=== PATIENT | male | born 1935 | race Caucasian/White ===

== ENCOUNTER 2020-07-04 11:36 | Emergency (ER) | payer MEDICARE, OTHER ==
--- NOTE | 2020-07-04 11:56 | EDM.PDOC ---
ED HPI GENERAL MEDICAL PROBLEM - General Chief Complaint: Chest Pain Time Seen by Provider: 07/04/20 11:36 Source of Information: Reports: Patient, EMS History Limitations: Reports: No Limitations - History of Present Illness INITIAL COMMENTS - FREE TEXT/NARRATIVE: Patient presents via ambulance with report of chest pain, wheezing, cough, Covid positive and requiring oxygen. On arrival he and EMS tell me that the chest pain was gone prior to time of [place] ambulance arrival to patient. He has had the cough for 3 weeks. Covid test was last week. His [id number] (who is his medical POA) called the hospital to let us know he is supposed to be at the [facility] and the family is waiting for him there. He does all of his medical care there including oncology. He has never been in [facility] before and they are requesting he be transported there as soon as possible. - Related Data Allergies Allergy/AdvReac Type Severity Reaction Status Date / Time No Known Allergies Allergy Verified 07/04/20 12:02 ED ROS GENERAL - Review of Systems Review Of Systems: See Below Constitutional: Reports: Fever Respiratory: Reports: Shortness of Breath, Wheezing, Cough Cardiovascular: Reports: Chest Pain (gone now) GI/Abdominal: Reports: Constipation. Denies: Diarrhea, Nausea, Vomiting : Reports: Other (bladder cancer) Musculoskeletal: Denies: Neck Pain, Shoulder Pain, Arm Pain Skin: Denies: Cyanosis, Jaundice, Mottled, Pallor Neurological: Denies: Confusion, Seizure, Syncope, Trouble Speaking Psychiatric: Denies: Agitation, Anxiety, Confusion ED EXAM, GENERAL - Physical Exam Exam: See Below Exam Limited By: No Limitations General Appearance: Alert, WD/WN, No Apparent Distress Eye Exam: Bilateral Eye: EOMI, Normal Inspection, PERRL Ears: Normal External Exam, Hearing Grossly Normal Nose: Normal Inspection, No Blood Throat/Mouth: Normal Inspection, Normal Voice, No Airway Compromise Head: Atraumatic, Normocephalic Neck: Normal Inspection, Full Range of Motion Respiratory/Chest: Crackles (inspiratory), Wheezing (expiratory; worse on left). No: Rhonchi, Stridor Cardiovascular: Normal Peripheral Pulses, No Murmur, Irregularly Irregular GI/Abdominal: Soft, Non-Tender Back Exam: Normal Inspection, Full Range of Motion. No: CVA Tenderness (L), CVA Tenderness (R) Extremities: Normal Inspection, Normal Range of Motion Neurological: Alert, Oriented, No Motor/Sensory Deficits Psychiatric: Normal Affect, Normal Mood Skin Exam: Warm, Dry, Intact, Normal Color, No Rash Course - Vital Signs Last Recorded V/S: Last Vital Signs Temp 100.8 F H 07/04/20 11:37 Pulse 95 07/04/20 13:00 Resp 22 H 07/04/20 13:00 BP 128/66 07/04/20 13:00 Pulse Ox 94 L 07/04/20 13:00 - Orders/Labs/Meds Orders: Active Orders 24 hr Category Date Time Status EKG Documentation Completion [RC] ASDIRECTED Care 07/04/20 12:10 Active Chest 2V [CR] Stat Exams 07/04/20 13:07 Ordered CULTURE BLOOD [BC] Stat Lab 07/04/20 12:37 Ordered CULTURE BLOOD [BC] Stat Lab 07/04/20 12:37 Ordered Blood Culture x2 Reflex Set [OM.PC] Stat Oth 07/04/20 12:36 Ordered EKG 12 Lead [EK] Stat Ther 07/04/20 12:10 Ordered Labs: Laboratory Tests 07/04/20 07/04/20 Range/Units 11:45 11:45 WBC 4.75 L (5.00-10.00) 10^3/uL RBC 3.16 L (4.50-6.00) 10^6/uL Hgb 9.9 L (13.0-17.0) g/dL Hct 27.7 L (40.0-52.0) % MCV 87.7 (82.0-92.0) fL MCH 31.3 H (27.0-31.0) pg MCHC 35.7 (32.0-36.0) g/dL RDW 14.4 (11.5-14.5) % Plt Count 62 L (150-400) 10^3/uL MPV 11.7 H (7.4-10.4) fL Immature Gran % (Auto) 0.2 (0.0-5.0) % Neut % (Auto) 79.0 H (50.0-70.0) % Lymph % (Auto) 10.9 L (20.0-40.0) % [place] % (Auto) 9.9 H (2.0-8.0) % Eos % (Auto) 0.0 L (1.0-3.0) % Baso % (Auto) 0.0 (0.0-1.0) % Neut # (Auto) 3.75 (2.50-7.00) 10^3/uL Lymph # (Auto) 0.52 L (1.00-4.00) 10^3/uL [place] # (Auto) 0.47 (0.10-0.80) 10^3/uL Eos # (Auto) 0.00 L (0.10-0.30) 10^3/uL Baso # (Auto) 0.00 (0.00-0.10) 10^3/uL Immature Gran # (Auto) 0.01 (0.00-0.50) 10^3/uL Sodium 128 L (136-145) mmol/L Potassium 3.5 (3.3-5.3) mmol/L Chloride 87 L* (98-115) mmol/L Carbon Dioxide 26.2 (21.0-32.0) mmol/L Anion Gap 18.3 H (5-15) mmol/L BUN 21 (6-25) mg/dL Creatinine 1.29 H (0.51-1.17) mg/dL Est Cr Clr Drug Dosing 46.21 mL/min Estimated GFR (MDRD) 53 mL/min Glucose 99 (75 - 99) mg/dL Calcium 7.8 L (8.7-10.3) mg/dL Total Bilirubin 0.5 (0.2-1.0) mg/dL AST 36 (15-37) U/L ALT 29 (12-78) U/L Alkaline Phosphatase 58 (46-116) IU/L Troponin I 0.04 (0.00-0.070) ng/mL Total Protein 6.3 L (6.4-8.2) g/dL Albumin 3.30 (3.00-4.80) g/dL - Re-Assessments/Exams Free Text/Narrative Re-Assessment/Exam: 07/04/20 12:21 I talked with the [id number]; family would like him in [place] in possible since he has done all of his treatment there. I discussed that he isn't having the chest pain now but that I suspect pneumonia. Once we have troponin resulted we can transfer either to [place] (if negative) or [place] (if positive); she agrees. 07/04/20 14:08 After multiple discussions with [place] providers, patient is accepted for transfer there for admission by Dr. Shelby, hospitalist. Troponin and WBC are normal. CXR shows mild infiltrate but radiology read not available due to PACS issues. Patient has been stable throughout ER course. Departure - Departure Time of Disposition: 14:10 Disposition: DC/Tfer to [facility] 02 Condition: Good Clinical Impression: Hypoxemia requiring supplemental oxygen, COVID-19, Pneumonia due to 2019-nCoV - Discharge Information Forms: ED Department Discharge Sepsis Event Note (ED) - Evaluation Sepsis Screening Result: Possible Sepsis Risk - Focused Exam Vital Signs: Vital Signs Temp Pulse Resp BP Pulse Ox 07/04/20 13:00 95 22 H 128/66 94 L 07/04/20 12:30 110 H 20 124/58 L 96 07/04/20 12:00 101 H 20 140/85 98 07/04/20 11:37 100.8 F H 91 20 130/86 98 - My Orders Last 24 Hours: My Active Orders 07/04/20 12:10 EKG Documentation Completion [RC] ASDIRECTED EKG 12 Lead [EK] Stat 07/04/20 12:36 Blood Culture x2 Reflex Set [OM.PC] Stat 07/04/20 12:37 CULTURE BLOOD [BC] Stat CULTURE BLOOD [BC] Stat 07/04/20 13:07 Chest 2V [CR] Stat - Assessment/Plan Last 24 Hours: My Active Orders 07/04/20 12:10 EKG Documentation Completion [RC] ASDIRECTED EKG 12 Lead [EK] Stat 07/04/20 12:36 Blood Culture x2 Reflex Set [OM.PC] Stat 07/04/20 12:37 CULTURE BLOOD [BC] Stat CULTURE BLOOD [BC] Stat 07/04/20 13:07 Chest 2V [CR] Stat
[2020-07-04 12:40] LABS: ANION GAP 18.3 mmol/L (5-15)
--- NOTE | 2020-07-04 16:08 | CR ---
[id number] RAD/RAD Chest PA And Lateral EXAM: RAD Chest PA And Lateral INDICATION: DYSPNEA. COMPARISON: None. DISCUSSION: Mild cardiomegaly and central vascular congestion. Subtle linear areas of opacification in the mid and lower lungs. Correlate for signs of infection to exclude developing pneumonia, including sequela of Covid 19. Differential diagnosis includes early changes of fluid retention/pulmonary edema. No pleural effusion or pneumothorax. IMPRESSION: As above. Mohit Maldonado MD 07/04/20 [id number] Thank you for allowing us to participate in the care of your patient.
== END 2020-07-04 14:45 ==
LOC: KA.ED 11:36
DX: U07.1 COVID-19 (principal); J12.89 Other viral pneumonia; R09.02 Hypoxemia
CPT/HCPCS: 36415; 71046; 80053; 84484; 85025; 87040; 93005; 99284; 99285-25